=== PATIENT | female | born 1970 | race Hispanic/Latino ===

== ENCOUNTER 2017-10-06 13:44 | Emergency (ER) | payer SELFPAY ==
[~2017-10-06] VITALS: Ht 152.4 cm; Wt 111.6 kg
[~2017-10-06 13:44] MED LIST: ACYCLOVIR200 MG PO; ACYCLOVIR400 MG PO; ASPIR 8181 MG PO; ATORVASTATIN CA20 MG PO; BUPROPION XL150 MG PO; CLINDAMYCIN HC150 MG PO; CYCLOBENZAPRINE5 MG PO; FUROSEMIDE40 MG PO; GABAPENTIN300 MG PO; GLYBURIDE MICRON3 MG PO; HYDROXYZINE HCL25 MG PO; KETOCONAZOLE15 GM TOP; LEVEMIR100 UNIT/1 SC; LEVEMIR100 UNIT/1 SQ; LIPITOR10 MG PO; LISINOPRIL2.5 MG PO; LOPRESSOR25 MG PO; METOPROLOL TART25 MG PO; MUPIROCIN22 GM TOP; NOVOLIN 70100 UNITS/; NOVOLIN R100 UNIT/1 SC; NOVOLIN R100 UNIT/1 SQ; NOVOLOG100 UNIT/1 SC; PREDNISONE20 MG PO; PROVENTIL HFA6.7 GM INH; RANITIDINE HCL150 MG PO; SPIRONOLACTONE25 MG PO; TERBINAFINE HC250 MG PO; ULTRAM 50MG50 MG PO; VASOTEC5 MG PO; VENTOLIN HFA18 GM
[2017-10-06] MEDS ORDERED: TRAMADOL HCL 50 MG TAB PO ONE (14:15)
== END 2017-10-06 15:26 | disposition home or self-care (01) ==
LOC: ER 13:44
DX: B37.3 Candidiasis of vulva and vagina (principal); E11.65 Type 2 diabetes mellitus with hyperglycemia; A60.00 Herpesviral infection of urogenital system, unspecified
CPT/HCPCS: 36415; 82948; 99283

== ENCOUNTER 2017-12-16 16:51 | Inpatient (IN) | payer BC, OTHER ==
[~2017-12-16] VITALS: Ht 152.4 cm; Wt 122.5 kg
--- OUTSIDE RECORDS SUMMARY | 2017-12-16 16:54 | XMS REPORT ---
[facility] Address Unknown Phone Unavailable Care Team Providers Care Rubber Compounder Name Role Phone Unavailable Unavailable Problems This patient has no known problems. Allergies, Adverse Reactions, Alerts This patient has no known allergies or adverse reactions. Medications This patient has no known medications. Encounters Start Date/Time End Date/Time Encounter Type Admission Type Attending [facility] Care Department Encounter ID 2018-02-12 00:00:00 2018-02-12 00:00:00 Outpatient [facility] [id number] 2018-01-18 00:00:00 2018-01-18 00:00:00 Outpatient [facility] [id number] 2018-01-04 00:00:00 2018-01-04 00:00:00 Outpatient [facility] [id number] 2017-12-20 00:00:00 2017-12-20 00:00:00 Outpatient [facility] [id number] 2017-12-20 00:00:00 2017-12-20 00:00:00 Outpatient [facility] [id number] 2017-12-12 00:00:00 2017-12-12 00:00:00 Outpatient [facility] [id number] 2017-12-12 00:00:00 2017-12-12 00:00:00 Outpatient [facility] [id number] 2017-12-07 09:36:56 2017-12-07 09:36:56 Outpatient [facility] [id number] 2017-11-23 11:02:38 2017-11-23 11:02:38 Outpatient [facility] [id number] 2017-11-22 00:00:00 2017-11-22 00:00:00 Outpatient [facility] [id number] 2017-11-10 08:24:23 2017-11-10 08:24:23 Outpatient [facility] [id number] 2017-11-09 10:22:48 2017-11-09 10:22:48 Outpatient [facility] [id number] 2017-11-08 17:07:00 2017-11-08 17:07:00 Emergency [facility] [id number] 2017-11-02 00:00:00 2017-11-02 00:00:00 Outpatient [facility] [id number] 2017-10-05 00:00:00 2017-10-05 00:00:00 Outpatient [facility] [id number] 2017-09-22 00:00:00 2017-09-22 00:00:00 Outpatient [facility] [id number] 2017-09-18 11:24:46 2017-09-18 11:24:46 Outpatient [facility] [id number] 2017-09-05 00:00:00 2017-09-05 00:00:00 Outpatient [facility] [id number] 2017-09-04 11:38:28 2017-09-04 11:38:28 Outpatient [facility] [id number] 2017-09-04 00:00:00 2017-09-04 00:00:00 Outpatient [facility] [id number] 2017-08-31 12:59:42 2017-08-31 12:59:42 Outpatient [facility] [id number] 2017-08-31 10:23:44 2017-08-31 10:23:44 Outpatient [facility] [id number] 2017-08-05 00:00:00 2017-08-05 00:00:00 Outpatient [facility] [id number] 2017-07-12 08:06:16 2017-07-12 08:06:16 Outpatient [facility] [id number] 2017-07-07 08:17:26 2017-07-07 08:17:26 Outpatient [facility] [id number] 2017-07-06 12:18:59 2017-07-06 12:18:59 Outpatient [facility] [id number] 2017-07-06 10:09:19 2017-07-06 10:09:19 Outpatient [facility] [id number] 2017-07-05 13:22:56 2017-07-05 13:22:56 Outpatient [facility] [id number] 2017-06-30 00:00:00 2017-06-30 00:00:00 Outpatient [facility] [id number] 2017-06-29 08:51:16 2017-06-29 08:51:16 Outpatient [facility] [id number] 2017-06-27 21:58:18 2017-06-27 21:58:18 Outpatient [facility] [id number] 2017-06-23 14:26:25 2017-06-23 14:26:25 Outpatient [facility] [id number] 2017-06-23 00:00:00 2017-06-23 00:00:00 Outpatient [facility] [id number] 2017-06-13 00:00:00 2017-06-13 00:00:00 Outpatient [facility] [id number] 2017-05-23 16:55:34 2017-05-23 16:55:34 Outpatient [facility] [id number] 2017-05-23 07:33:53 2017-05-23 07:33:53 Outpatient [facility] [id number] 2017-05-22 12:57:52 2017-05-22 12:57:52 Outpatient [facility] [id number] 2017-05-16 09:17:47 2017-05-16 09:17:47 Outpatient [facility] [id number] 2017-05-10 13:01:44 2017-05-10 13:01:44 Outpatient [facility] [id number] 2017-05-10 08:38:29 2017-05-10 08:38:29 Outpatient [facility] [id number] 2017-05-08 00:00:00 2017-05-08 00:00:00 Outpatient [facility] [id number] 2017-04-24 00:00:00 2017-04-24 00:00:00 Outpatient [facility] [id number] 2017-04-05 00:20:21 2017-04-05 00:20:21 Emergency [facility] [id number] 2017-04-04 22:11:45 2017-04-04 22:11:45 Emergency [facility] [id number] 2017-04-04 09:48:25 2017-04-04 09:48:25 Outpatient [facility] [id number] 2017-03-29 08:12:34 2017-03-29 08:12:34 Outpatient [facility] [id number] 2017-03-22 00:00:00 2017-03-22 00:00:00 Outpatient [facility] [id number] 2017-03-22 00:00:00 2017-03-22 00:00:00 Outpatient [facility] [id number] 2017-03-16 14:17:07 2017-03-16 14:17:07 Outpatient [facility] [id number] 2017-03-16 13:02:05 2017-03-16 13:02:05 Outpatient [facility] [id number] 2017-03-06 00:00:00 2017-03-06 00:00:00 Outpatient [facility] [id number] 2017-03-03 14:45:55 2017-03-03 14:45:55 Outpatient [facility] [id number] 2017-03-01 17:46:34 2017-03-01 17:46:34 Emergency [facility] [id number]
[2017-12-16] MEDS ORDERED: SODIUM CHLORIDE 0.9% 1000ML 1,000 ML IV STA (17:09)
[2017-12-16] MEDS ORDERED: TETRACAINE HCL 0.5% OPTH SOLN 4 ML BTL OP ONE (17:30)
[2017-12-16 17:53] LABS: BILIRUBIN,URINE NEGATIVE (NEGATIVE); CLARITY,URINE CLEAR (CLEAR); COLOR,URINE STRAW (YELLOW); KETONES,URINE NEGATIVE (NEGATIVE); LEUKOCYTE ESTERASE ,URINE NEGATIVE (NEGATIVE); NITRITE,URINE NEGATIVE (NEGATIVE); PROTEIN,URINE DIPSTICK NEGATIVE (NEGATIVE); URINE UROBILINOGEN 0.2 mg/dL (0.2 - 1)
[2017-12-16] MEDS ORDERED: ONDANSETRON HCL INJ 2 MG/ML VIAL IV NR (18:00)
[2017-12-16] MEDS ORDERED: MORPHINE SULFATE 2 MG/ML SYR IV NR (18:00)
[2017-12-16] MEDS ORDERED: CLINDAMYCIN PHOS 900MG/ D5W 50 50 ML IV NR (18:00)
[2017-12-16 18:05] LABS: EPITHELIAL CELLS,URINE MANY /LPF
[2017-12-16 18:06] LABS: BACTERIA,URINE RARE /HPF
[2017-12-16 18:36] LABS: BASOPHILS % 0.3 % (0.0-1.0); EOSINOPHILS # (AUTO) 0.3 (0.0-0.4); EOSINOPHILS % 3.1 % (0.0-6.0); HEMATOCRIT 36.7 % (34.2-44.1); HEMOGLOBIN 11.5 g/dL (12.0-16.0); LYMPHOCYTES % 19.4 % (18.0-39.1); MEAN CORPUSCULAR HEMOGLOBIN 26.7 pg (28-32); MEAN CORPUSCULAR HGB CONC 31.3 g/dL (31-35); MEAN CORPUSCULAR VOLUME 85.3 fL (81-99); MONOCYTES # (AUTO) 0.5 (0.2-0.8); MONOCYTES % 4.9 % (4.4-11.3); NEUTROPHILS # (AUTO) 7.2 (2.1-6.9); NEUTROPHILS % 71.9 % (38.7-80.0); PLATELET COUNT 260 x10e3/uL (140-360); RED CELL DISTRIBUTION WIDTH 14.1 % (11.7-14.4)
[2017-12-16] MEDS ORDERED: MONTELUKAST SOD10 MG PO (18:39)
[2017-12-16 18:52] LABS: ALBUMIN 2.9 g/dL (3.5-5.0); ALBUMIN/GLOBULIN RATIO 0.6 (0.8-2.0); ANION GAP 14.3 mmol/L (8-16); CALCIUM 9.5 mg/dL (8.4-10.2); CREATININE, SERUM 1.06 mg/dL (0.57-1.11); POTASSIUM 4.3 mmol/L (3.5-5.1)
--- NOTE | 2017-12-16 19:23 | Diagnostic Imaging Report ---
EXAM: FOOT RIGHT COMPLETE, AP, lateral and oblique INDICATION: Blister on lower leg COMPARISON: None FINDINGS: BONES: No acute fractures. Small plantar calcaneal spur. JOINTS: No malalignment. SOFT TISSUES: Soft tissue swelling/edema of the foot. IMPRESSION: No fractures or erosions of the right foot. Signed by: Dr. Columba Man M.D. on 12/16/2017 7:19 PM
--- NOTE | 2017-12-16 19:24 | Diagnostic Imaging Report ---
EXAM: LOWER LEG RIGHT, AP and lateral INDICATION: Blister on lower leg COMPARISON: None FINDINGS: BONES: No acute fractures. JOINTS: No malalignment. SOFT TISSUES: Soft tissue swelling/edema of the right leg. IMPRESSION: No right tibia or fibula erosion or fracture. Signed by: Dr. Columba Man M.D. on 12/16/2017 7:20 PM
[2017-12-16] MEDS ORDERED: ONDANSETRON HCL INJ 2 MG/ML VIAL IV PRN (19:30)
[2017-12-16] MEDS ORDERED: SODIUM CHLORIDE FLUSH 10 ML SYR INJ PRN (19:30)
[2017-12-16] MEDS ORDERED: MORPHINE SULFATE 2 MG/ML SYR IV PRN (19:30)
[2017-12-16 20:45] VITALS: BP 192/91
[2017-12-16] MEDS: VANCOMYCIN 1GM/NS 250 ML 250 ML IV SCH (22:43)
[2017-12-16 23:28] VITALS: BP 192/91
[2017-12-17] VITALS (8 sets, daily range): BP systolic 114–192; BP diastolic 54–91
[2017-12-17] MEDS: CLONIDINE HCL 0.1 MG TAB PO PRN (00:31)
[2017-12-17] MEDS ORDERED: TRAMADOL HCL 50 MG TAB PO PRN (01:15)
[2017-12-17 06:53] LABS: BASOPHILS % 0.2 % (0.0-1.0); EOSINOPHILS # (AUTO) 0.3 (0.0-0.4); EOSINOPHILS % 4.1 % (0.0-6.0); HEMATOCRIT 32.8 % (34.2-44.1); LYMPHOCYTES # (AUTO) 1.2 (1.0-3.2); LYMPHOCYTES % 14.3 % (18.0-39.1); MEAN CORPUSCULAR HEMOGLOBIN 26.8 pg (28-32); MEAN CORPUSCULAR HGB CONC 30.5 g/dL (31-35); MEAN CORPUSCULAR VOLUME 87.9 fL (81-99); MONOCYTES # (AUTO) 0.5 (0.2-0.8); MONOCYTES % 6.5 % (4.4-11.3); NEUTROPHILS # (AUTO) 6.2 (2.1-6.9); NEUTROPHILS % 74.5 % (38.7-80.0); PLATELET COUNT 229 x10e3/uL (140-360); RED BLOOD COUNT 3.73 x10e6/uL (3.6-5.1); RED CELL DISTRIBUTION WIDTH 14.1 % (11.7-14.4)
[2017-12-17] MEDS: INSULIN LISPRO 100 UNIT/1 ML 3ML VIAL SQ SCH ×3 (07:50→16:27)
[2017-12-17] MEDS: VANCOMYCIN 1GM/NS 250 ML 250 ML IV SCH ×2 (08:10→20:01)
[2017-12-17] MEDS: ASPIRIN 81 MG CHEW TAB PO SCH (08:59)
[2017-12-17] MEDS: SPIRONOLACTONE 25 MG TAB PO SCH (08:59)
[2017-12-17] MEDS: FUROSEMIDE 40 MG TAB PO SCH ×2 (08:59→16:47)
[2017-12-17] MEDS: KETOCONAZOLE 2% CREAM/15 GM TUBE TOP SCH (09:00)
[2017-12-17] MEDS ORDERED: INSULIN REGULAR, HUMAN 100 UNIT/1 ML 3ML VIAL SQ SCH (09:00)
[2017-12-17] MEDS: LISINOPRIL 2.5 MG TAB PO SCH (09:00)
[2017-12-17] MEDS: BUPROPION HCL 150 MG TABCR PO SCH (09:00)
[2017-12-17] MEDS: GABAPENTIN 300 MG CAP PO SCH ×3 (09:00→22:06)
[2017-12-17] MEDS: MUPIROCIN 2% OINT 22 GM TUBE TOP SCH (09:00)
[2017-12-17] MEDS ORDERED: LEVOFLOXACIN 750MG/D5W 150ML 150 ML IV SCH (09:00)
[2017-12-17] MEDS: METOPROLOL TARTRATE 25 MG TAB PO SCH ×2 (09:00→16:47)
[2017-12-17] MEDS: TERBINAFINE 250 MG TAB PO SCH (09:00)
[2017-12-17] MEDS: CLINDAMYCIN HCL 150 MG CAP PO SCH ×3 (10:45→22:06)
[2017-12-17] MEDS: ACYCLOVIR 200 MG CAP PO SCH (10:45)
[2017-12-17] MEDS ORDERED: SODIUM CHLORIDE 0.9% 250ML 250 ML ONE (10:49)
[2017-12-17] MEDS ORDERED: MONTELUKAST SODIUM 10 MG TAB PO SCH (15:00)
[2017-12-17] MEDS: MONTELUKAST SODIUM 10 MG TAB PO SCH (22:06)
[2017-12-18] VITALS (8 sets, daily range): BP systolic 124–176; BP diastolic 59–82
[2017-12-18] MEDS: CLONIDINE HCL 0.1 MG TAB PO PRN (01:03)
[2017-12-18] MEDS: VANCOMYCIN 1GM/NS 250 ML 250 ML IV SCH ×2 (08:00→20:00)
[2017-12-18] MEDS: INSULIN LISPRO 100 UNIT/1 ML 3ML VIAL SQ SCH ×2 (08:00→12:00)
[2017-12-18] MEDS: METOPROLOL TARTRATE 25 MG TAB PO SCH ×2 (09:00→17:50)
[2017-12-18] MEDS: LISINOPRIL 2.5 MG TAB PO SCH (09:00)
[2017-12-18] MEDS: ACYCLOVIR 200 MG CAP PO SCH (09:43)
[2017-12-18] MEDS: FUROSEMIDE 40 MG TAB PO SCH ×2 (09:43→17:49)
[2017-12-18] MEDS: SPIRONOLACTONE 25 MG TAB PO SCH (09:43)
[2017-12-18] MEDS: ASPIRIN 81 MG CHEW TAB PO SCH (09:43)
[2017-12-18] MEDS: GABAPENTIN 300 MG CAP PO SCH ×3 (09:43→21:46)
[2017-12-18] MEDS: MUPIROCIN 2% OINT 22 GM TUBE TOP SCH (09:43)
[2017-12-18] MEDS: KETOCONAZOLE 2% CREAM/15 GM TUBE TOP SCH (09:43)
[2017-12-18] MEDS: BUPROPION HCL 150 MG TABCR PO SCH (09:43)
[2017-12-18] MEDS: CLINDAMYCIN HCL 150 MG CAP PO SCH ×3 (09:43→21:46)
[2017-12-18] MEDS: TERBINAFINE 250 MG TAB PO SCH (12:23)
[2017-12-18] MEDS ORDERED: DEXTROSE 50% SYRINGE 50 ML IV PRN (15:00)
[2017-12-18] MEDS: INSULIN REGULAR, HUMAN 100 UNIT/1 ML 3ML VIAL SQ SCH ×2 (16:30→21:46)
[2017-12-18] MEDS: NPH, HUMAN INSULIN ISOPHANE 100 UNIT/1 ML 3ML VIAL SQ SCH (17:00)
[2017-12-18] MEDS: MONTELUKAST SODIUM 10 MG TAB PO SCH (21:46)
[2017-12-18] MEDS: INSULIN DETEMIR 100 UNIT/ML PEN SQ SCH (21:47)
[2017-12-19] VITALS (7 sets, daily range): BP systolic 125–157; BP diastolic 59–72
[2017-12-19 07:09] LABS: BASOPHILS % 0.4 % (0.0-1.0); EOSINOPHILS # (AUTO) 0.4 (0.0-0.4); EOSINOPHILS % 4.5 % (0.0-6.0); HEMATOCRIT 37.1 % (34.2-44.1); HEMOGLOBIN 11.6 g/dL (12.0-16.0); LYMPHOCYTES # (AUTO) 1.8 (1.0-3.2); LYMPHOCYTES % 19.3 % (18.0-39.1); MEAN CORPUSCULAR HGB CONC 31.3 g/dL (31-35); MEAN CORPUSCULAR VOLUME 86.5 fL (81-99); MONOCYTES # (AUTO) 0.6 (0.2-0.8); MONOCYTES % 6.9 % (4.4-11.3); NEUTROPHILS # (AUTO) 6.3 (2.1-6.9); NEUTROPHILS % 68.6 % (38.7-80.0); PLATELET COUNT 269 x10e3/uL (140-360); RED BLOOD COUNT 4.29 x10e6/uL (3.6-5.1); RED CELL DISTRIBUTION WIDTH 14.3 % (11.7-14.4)
[2017-12-19] MEDS: INSULIN REGULAR, HUMAN 100 UNIT/1 ML 3ML VIAL SQ SCH ×4 (07:30→21:04)
[2017-12-19] MEDS: VANCOMYCIN 1GM/NS 250 ML 250 ML IV SCH ×2 (08:57→21:04)
[2017-12-19] MEDS: KETOCONAZOLE 2% CREAM/15 GM TUBE TOP SCH (09:00)
[2017-12-19] MEDS: LISINOPRIL 2.5 MG TAB PO SCH (09:00)
[2017-12-19] MEDS: NPH, HUMAN INSULIN ISOPHANE 100 UNIT/1 ML 3ML VIAL SQ SCH ×2 (09:00→17:00)
[2017-12-19] MEDS: METOPROLOL TARTRATE 25 MG TAB PO SCH ×2 (09:00→17:05)
[2017-12-19] MEDS: ASPIRIN 81 MG CHEW TAB PO SCH (09:29)
[2017-12-19] MEDS: GABAPENTIN 300 MG CAP PO SCH ×3 (09:29→21:04)
[2017-12-19] MEDS: SPIRONOLACTONE 25 MG TAB PO SCH (09:29)
[2017-12-19] MEDS: CLINDAMYCIN HCL 150 MG CAP PO SCH ×3 (09:29→21:04)
[2017-12-19] MEDS: FUROSEMIDE 40 MG TAB PO SCH ×2 (09:29→17:05)
[2017-12-19] MEDS: MUPIROCIN 2% OINT 22 GM TUBE TOP SCH (09:30)
[2017-12-19] MEDS: BUPROPION HCL 150 MG TABCR PO SCH (09:30)
[2017-12-19] MEDS: ACYCLOVIR 200 MG CAP PO SCH (09:30)
[2017-12-19] MEDS: TERBINAFINE 250 MG TAB PO SCH (12:44)
[2017-12-19] MEDS: INSULIN DETEMIR 100 UNIT/ML PEN SQ SCH (21:04)
[2017-12-19] MEDS: MONTELUKAST SODIUM 10 MG TAB PO SCH (21:04)
[2017-12-20 00:12] VITALS: BP 120/58
[2017-12-20 00:25] VITALS: BP 120/58
[2017-12-20 05:12] VITALS: BP 114/53
[2017-12-20 07:00] LABS: BASOPHILS % 0.3 % (0.0-1.0); EOSINOPHILS # (AUTO) 0.4 (0.0-0.4); EOSINOPHILS % 4.4 % (0.0-6.0); HEMATOCRIT 38.6 % (34.2-44.1); HEMOGLOBIN 11.9 g/dL (12.0-16.0); LYMPHOCYTES # (AUTO) 2.1 (1.0-3.2); LYMPHOCYTES % 21.3 % (18.0-39.1); MEAN CORPUSCULAR HEMOGLOBIN 26.6 pg (28-32); MEAN CORPUSCULAR HGB CONC 30.8 g/dL (31-35); MEAN CORPUSCULAR VOLUME 86.2 fL (81-99); MONOCYTES # (AUTO) 0.8 (0.2-0.8); MONOCYTES % 7.6 % (4.4-11.3); NEUTROPHILS # (AUTO) 6.5 (2.1-6.9); NEUTROPHILS % 65.9 % (38.7-80.0); PLATELET COUNT 274 x10e3/uL (140-360); RED BLOOD COUNT 4.48 x10e6/uL (3.6-5.1); RED CELL DISTRIBUTION WIDTH 14.3 % (11.7-14.4)
[2017-12-20 07:21] LABS: ALBUMIN 2.9 g/dL (3.5-5.0); ALBUMIN/GLOBULIN RATIO 0.6 (0.8-2.0); ANION GAP 14.5 mmol/L (8-16); CALCIUM 9.3 mg/dL (8.4-10.2); CREATININE, SERUM 1.25 mg/dL (0.57-1.11); POTASSIUM 4.5 mmol/L (3.5-5.1)
[2017-12-20] MEDS: INSULIN REGULAR, HUMAN 100 UNIT/1 ML 3ML VIAL SQ SCH ×2 (07:40→11:35)
[2017-12-20] MEDS: VANCOMYCIN 1GM/NS 250 ML 250 ML IV SCH (08:00)
[2017-12-20 08:07] VITALS: BP 100/56
[2017-12-20] MEDS: FUROSEMIDE 40 MG TAB PO SCH (08:10)
[2017-12-20] MEDS: ASPIRIN 81 MG CHEW TAB PO SCH (08:10)
[2017-12-20] MEDS: TERBINAFINE 250 MG TAB PO SCH (08:10)
[2017-12-20] MEDS: ACYCLOVIR 200 MG CAP PO SCH (08:10)
[2017-12-20] MEDS: GABAPENTIN 300 MG CAP PO SCH ×2 (08:10→16:10)
[2017-12-20] MEDS: CLINDAMYCIN HCL 150 MG CAP PO SCH ×2 (08:10→16:10)
[2017-12-20] MEDS: BUPROPION HCL 150 MG TABCR PO SCH (08:10)
[2017-12-20] MEDS: SPIRONOLACTONE 25 MG TAB PO SCH (08:10)
[2017-12-20] MEDS: NPH, HUMAN INSULIN ISOPHANE 100 UNIT/1 ML 3ML VIAL SQ SCH (08:10)
[2017-12-20] MEDS: METOPROLOL TARTRATE 25 MG TAB PO SCH (09:00)
[2017-12-20] MEDS: MUPIROCIN 2% OINT 22 GM TUBE TOP SCH (09:00)
[2017-12-20] MEDS: LISINOPRIL 2.5 MG TAB PO SCH (09:00)
[2017-12-20] MEDS: KETOCONAZOLE 2% CREAM/15 GM TUBE TOP SCH (09:00)
[2017-12-20 11:41] VITALS: BP 153/69
[2017-12-20 16:23] VITALS: BP 153/68
== END 2017-12-20 17:12 | disposition home or self-care (01) | DRG 603 ==
LOC: ER 16:51 → ERHOLD 19:42 → MED/SURG3 20:16
PROVIDERS: ADMIT Family Medicine; ATTEND Family Medicine
DX: L03.115 Cellulitis of right lower limb (principal); E11.40 Type 2 diabetes mellitus with diabetic neuropathy, unspecified; Z68.43 Body mass index [BMI] 50.0-59.9, adult; I10 Essential (primary) hypertension; E78.5 Hyperlipidemia, unspecified; I87.8 Other specified disorders of veins; E66.9 Obesity, unspecified; Z79.82 Long term (current) use of aspirin; Z79.4 Long term (current) use of insulin; Z88.0 Allergy status to penicillin; Z88.2 Allergy status to sulfonamides; Z88.8 Allergy status to other drugs, medicaments and biological substances; Z88.5 Allergy status to narcotic agent
CPT/HCPCS: 36415; 80053; 80202; 81001; 82948; 83605; 85025; 87040; 87071; 87205; 96360; 96361; 96365; 96367; 96372; 96374; 99284; J2270; J2405; J3370; J7030; J7050

== ENCOUNTER 2018-06-19 19:10 | Inpatient (IN) | payer SELFPAY ==
[~2018-06-19] VITALS: Ht 167.6 cm; Wt 115.7 kg
[~2018-06-19 19:10] MED LIST changes: +MONTELUKAST SOD10 MG PO
[2018-06-19] MEDS ORDERED: HYDROCODONE/APAP 5MG-325MG TAB PO NR (20:15)
[2018-06-19 20:40] LABS: BASOPHILS % 0.5 % (0.0-1.0); EOSINOPHILS # (AUTO) 0.2 (0.0-0.4); EOSINOPHILS % 3.4 % (0.0-6.0); HEMATOCRIT 37.5 % (34.2-44.1); HEMOGLOBIN 12.3 g/dL (12.0-16.0); LYMPHOCYTES # (AUTO) 1.8 (1.0-3.2); LYMPHOCYTES % 29.4 % (18.0-39.1); MEAN CORPUSCULAR HEMOGLOBIN 28.4 pg (28-32); MEAN CORPUSCULAR HGB CONC 32.8 g/dL (31-35); MEAN CORPUSCULAR VOLUME 86.6 fL (81-99); MONOCYTES # (AUTO) 0.3 (0.2-0.8); MONOCYTES % 5.4 % (4.4-11.3); NEUTROPHILS # (AUTO) 3.8 (2.1-6.9); NEUTROPHILS % 61.1 % (38.7-80.0); PLATELET COUNT 267 x10e3/uL (140-360); RED BLOOD COUNT 4.33 x10e6/uL (3.6-5.1); RED CELL DISTRIBUTION WIDTH 13.2 % (11.7-14.4)
--- NOTE | 2018-06-19 21:52 | Diagnostic Imaging Report ---
LOWER LEG LEFT Comparison: None Clinical history: \S\Puncture wound LLE, rule out FB \[id number] \S\2100 \S\Y Findings: Mild lower extremity soft tissue swelling. No acute fracture or dislocation. No bony erosion. Benign smooth periosteal thickening of the fibula, which can be seen with chronic venous stasis. Impression: No radiographic evidence of osteomyelitis. No radiopaque foreign body. Signed by: Dr Cara Agustin MD on 06/19/2018 9:47 PM
[2018-06-19 21:53] LABS: ALANINE AMINOTRANSFERASE 17 IU/L (0-55); ALBUMIN 3.2 g/dL (3.5-5.0); ALBUMIN/GLOBULIN RATIO 0.7 (0.8-2.0); ALKALINE PHOSPHATASE 88 IU/L (40-150); AMYLASE 27 U/L (25-125); ANION GAP 14.1 mmol/L (8-16); BLOOD UREA NITROGEN 11 mg/dL (7-26); BUN/CREATININE RATIO 9 (6-25); CALCIUM 9.4 mg/dL (8.4-10.2); CARBON DIOXIDE 31 mmol/L (22-29); CHLORIDE 95 mmol/L (98-107); CREATININE, SERUM 1.28 mg/dL (0.57-1.11); EST GLOMERULAR FILTRATION RATE 44 ML/MIN (60-); LIPASE 26 U/L (8-78); POTASSIUM 4.1 mmol/L (3.5-5.1); SODIUM 136 mmol/L (136-145)
[2018-06-19 21:54] LABS: GLUCOSE 492 mg/dL (74-118)
[2018-06-19] MEDS ORDERED: MORPHINE SULFATE 2 MG/ML SYR IV PRN (22:00)
[2018-06-19] MEDS ORDERED: SODIUM CHLORIDE 0.9% 1000ML 1,000 ML IV SCH (22:00)
[2018-06-19] MEDS ORDERED: INSULIN REGULAR, HUMAN 100 UNIT/1 ML 3ML VIAL IV ONE (22:00)
[2018-06-19] MEDS ORDERED: ONDANSETRON HCL INJ 2 MG/ML VIAL IV PRN (22:00)
[2018-06-19] MEDS ORDERED: DEXTROSE 50% SYRINGE 50 ML IV PRN (22:00)
[2018-06-19 22:24] LABS: BILIRUBIN,URINE NEGATIVE (NEGATIVE); CLARITY,URINE SL CLOUDY (CLEAR); COLOR,URINE YELLOW (YELLOW); KETONES,URINE NEGATIVE (NEGATIVE); LEUKOCYTE ESTERASE ,URINE NEGATIVE (NEGATIVE); NITRITE,URINE NEGATIVE (NEGATIVE); PROTEIN,URINE DIPSTICK TRACE (NEGATIVE); URINE UROBILINOGEN 0.2 mg/dL (0.2 - 1)
[2018-06-19] MEDS: LEVOFLOXACIN 500MG/D5W 100ML 100 ML IV SCH (22:45)
[2018-06-19] MEDS: SODIUM CHLORIDE 0.9% 1000ML 1,000 ML IV SCH (22:45)
[2018-06-19 22:53] LABS: BACTERIA,URINE FEW /HPF; EPITHELIAL CELLS,URINE FEW /LPF; RBC,URINE 0-5 /HPF (0-5); WBC,URINE (MAN) 0-5 /HPF (0-5)
[2018-06-19 23:49] VITALS: BP 173/89
[2018-06-20] VITALS (8 sets, daily range): BP systolic 114–173; BP diastolic 55–89
[2018-06-20] MEDS: VANCOMYCIN 1GM/NS 250 ML 250 ML IV SCH ×3 (01:11→22:30)
[2018-06-20 05:34] LABS: BASOPHILS % 0.4 % (0.0-1.0); EOSINOPHILS # (AUTO) 0.2 (0.0-0.4); HEMATOCRIT 35.6 % (34.2-44.1); HEMOGLOBIN 11.4 g/dL (12.0-16.0); LYMPHOCYTES # (AUTO) 1.3 (1.0-3.2); LYMPHOCYTES % 23.2 % (18.0-39.1); MEAN CORPUSCULAR HEMOGLOBIN 28.3 pg (28-32); MEAN CORPUSCULAR VOLUME 88.3 fL (81-99); MONOCYTES # (AUTO) 0.4 (0.2-0.8); MONOCYTES % 7.4 % (4.4-11.3); NEUTROPHILS # (AUTO) 3.6 (2.1-6.9); NEUTROPHILS % 64.8 % (38.7-80.0); PLATELET COUNT 213 x10e3/uL (140-360); RED BLOOD COUNT 4.03 x10e6/uL (3.6-5.1); RED CELL DISTRIBUTION WIDTH 12.9 % (11.7-14.4)
[2018-06-20 05:56] LABS: ALANINE AMINOTRANSFERASE 14 IU/L (0-55); ALBUMIN 2.8 g/dL (3.5-5.0); ALBUMIN/GLOBULIN RATIO 0.7 (0.8-2.0); ALKALINE PHOSPHATASE 75 IU/L (40-150); ANION GAP 11.8 mmol/L (8-16); BLOOD UREA NITROGEN 10 mg/dL (7-26); BUN/CREATININE RATIO 11 (6-25); CALCIUM 8.6 mg/dL (8.4-10.2); CARBON DIOXIDE 26 mmol/L (22-29); CHLORIDE 100 mmol/L (98-107); CREATININE, SERUM 0.94 mg/dL (0.57-1.11); EST GLOMERULAR FILTRATION RATE > 60 ML/MIN (60-); GLUCOSE 317 mg/dL (74-118); POTASSIUM 3.8 mmol/L (3.5-5.1); SODIUM 134 mmol/L (136-145)
[2018-06-20] MEDS ORDERED: TRAMADOL HCL 50 MG TAB PO PRN (07:15)
[2018-06-20] MEDS: INSULIN LISPRO 100 UNIT/1 ML 3ML VIAL SQ SCH ×3 (07:52→16:30)
[2018-06-20] MEDS: INSULIN REGULAR, HUMAN 100 UNIT/1 ML 3ML VIAL SQ SCH ×4 (07:52→20:19)
[2018-06-20] MEDS: LISINOPRIL 2.5 MG TAB PO SCH (08:31)
[2018-06-20] MEDS: FUROSEMIDE 40 MG TAB PO SCH ×2 (08:31→16:50)
[2018-06-20] MEDS: INSULIN DETEMIR 100 UNIT/ML PEN SQ SCH ×2 (08:31→20:31)
[2018-06-20] MEDS: ACYCLOVIR 200 MG CAP PO SCH (08:31)
[2018-06-20] MEDS: BUPROPION HCL 150 MG TABCR PO SCH (08:31)
[2018-06-20] MEDS: ASPIRIN 81 MG CHEW TAB PO SCH (08:31)
[2018-06-20] MEDS: METOPROLOL TARTRATE 25 MG TAB PO SCH ×2 (08:31→16:50)
[2018-06-20] MEDS: SPIRONOLACTONE 25 MG TAB PO SCH (08:31)
[2018-06-20] MEDS: GABAPENTIN 300 MG CAP PO SCH ×3 (08:31→20:19)
[2018-06-20] MEDS: TERBINAFINE 250 MG TAB PO SCH (08:31)
[2018-06-20] MEDS: SODIUM CHLORIDE 0.9% 1000ML 1,000 ML IV SCH ×3 (08:35→21:02)
[2018-06-20] MEDS ORDERED: INSULIN DETEMIR 90 UNIT SC SCH (09:00)
[2018-06-20] MEDS ORDERED: ACETAMINOPHEN 325 MG TAB PO PRN (11:30)
[2018-06-20] MEDS ORDERED: MORPHINE SULFATE INJ 4 MG/ML INJ IV PRN (13:30)
[2018-06-20] MEDS: LEVOFLOXACIN 500MG/D5W 100ML 100 ML IV SCH (21:01)
--- NOTE | 2018-06-20 21:09 | History and Physical ---
CHIEF COMPLAINT: [id number] female comes with redness and erythema to the lower extremity. HISTORY OF PRESENTING ILLNESS: This is Ms. Nicol Jessica with a history of uncontrolled diabetes mellitus, who was in usual state of health until she bumped her lower extremity into a corner of a box and she developed puncture wound, and the puncture wound started getting infected. The patient started with erythema and tenderness in that area and came on and was admitted for cellulitis of the lower extremities. PAST MEDICAL HISTORY: History of diabetes mellitus, history of hypertension, history of venous stasis, history of obesity, history of neuropathy, history of hyperlipidemia, history of COPD, history of sleep apnea. SURGICAL HISTORY: Includes cholecystectomy, hemorrhoidectomy, and tubal ligation. MEDICATIONS: Include acyclovir 200 mg, albuterol and Atrovent treatments, bupropion 150 mg for depression, clindamycin 150 mg 3 times a day, gabapentin 600 mg 3 times a day, insulin Levemir 9 units twice a day, ketoconazole 50 mg cream, lisinopril 2.5 mg daily, metoprolol 25 mg twice a day, montelukast 10 mg, Aldactone 10 mg, and terbinafine mg. SOCIAL HISTORY: No ETOH, no IV drug abuse. FAMILY HISTORY: Positive for diabetes mellitus and also for cardiac. PHYSICAL EXAMINATION: GENERAL: Patient is alert and oriented x3. VITAL SIGNS: Blood pressure is 185/85, heart rate is 78, satting at 96%. HEENT: Normocephalic, atraumatic. Pupils react to light and accommodation. CVS: S1 and S2 normal. Regular rate and rhythm. ABDOMEN: Nondistended. Slight tenderness in the left upper quadrant. EXTREMITIES: Left lower quadrant with tenderness and positive for erythematous lesion with some sloughing also present. IMAGING STUDIES: Lower extremity x-rays showed mild lower extremity soft tissue swelling. No bony erosions. Benign smooth periosteal thickening in the fibula which can be seen as chronic venous stasis and no radiographic evidence of osteomyelitis. LABORATORY VALUES: White count was 5.5, hemoglobin was 11.4, hematocrit was normal. Glucose was 492. Sodium was 136, potassium was 4.1, creatinine of 1.28. ASSESSMENT: 1. Cellulitis of the left lower extremity. 2. Status post puncture wound. 3. Uncontrolled diabetes mellitus. 4. Acute kidney injury. PLAN: To continue with the Zosyn and the vancomycin. Vancomycin trough will be checked. The patient has to keep her leg elevated and will continue to monitor the patient. Further recommendations on clinical course. Also, I will continue her home medications for diabetes mellitus. Job#: [id number]
[2018-06-21] VITALS (7 sets, daily range): BP systolic 119–170; BP diastolic 58–94
[2018-06-21] MEDS: SODIUM CHLORIDE 0.9% 1000ML 1,000 ML IV SCH ×2 (05:59→20:51)
[2018-06-21] MEDS: INSULIN REGULAR, HUMAN 100 UNIT/1 ML 3ML VIAL SQ SCH ×4 (07:42→20:47)
[2018-06-21] MEDS: INSULIN LISPRO 100 UNIT/1 ML 3ML VIAL SQ SCH ×3 (07:42→16:30)
[2018-06-21] MEDS: ASPIRIN 81 MG CHEW TAB PO SCH (08:08)
[2018-06-21] MEDS: GABAPENTIN 300 MG CAP PO SCH ×3 (08:08→20:47)
[2018-06-21] MEDS: FUROSEMIDE 40 MG TAB PO SCH ×2 (08:08→16:55)
[2018-06-21] MEDS: METOPROLOL TARTRATE 25 MG TAB PO SCH ×2 (08:08→16:55)
[2018-06-21] MEDS: TERBINAFINE 250 MG TAB PO SCH (08:08)
[2018-06-21] MEDS: SPIRONOLACTONE 25 MG TAB PO SCH (08:09)
[2018-06-21] MEDS: LISINOPRIL 2.5 MG TAB PO SCH (08:48)
[2018-06-21] MEDS: ACYCLOVIR 200 MG CAP PO SCH (08:48)
[2018-06-21] MEDS: BUPROPION HCL 150 MG TABCR PO SCH (08:48)
[2018-06-21] MEDS: INSULIN DETEMIR 100 UNIT/ML PEN SQ SCH ×2 (08:49→20:46)
[2018-06-21] MEDS: VANCOMYCIN 1GM/NS 250 ML 250 ML IV SCH ×2 (10:05→22:00)
[2018-06-21] MEDS: LEVOFLOXACIN 500MG/D5W 100ML 100 ML IV SCH (22:00)
[2018-06-22 00:14] VITALS: BP 141/71
[2018-06-22 05:11] VITALS: BP 128/64
[2018-06-22] MEDS: INSULIN REGULAR, HUMAN 100 UNIT/1 ML 3ML VIAL SQ SCH ×3 (07:30→16:30)
[2018-06-22] MEDS: INSULIN LISPRO 100 UNIT/1 ML 3ML VIAL SQ SCH ×3 (07:30→16:30)
[2018-06-22 07:50] VITALS: BP 164/68
[2018-06-22] MEDS: ASPIRIN 81 MG CHEW TAB PO SCH (08:17)
[2018-06-22] MEDS: LISINOPRIL 2.5 MG TAB PO SCH (08:17)
[2018-06-22] MEDS: TERBINAFINE 250 MG TAB PO SCH (08:17)
[2018-06-22] MEDS: METOPROLOL TARTRATE 25 MG TAB PO SCH ×2 (08:17→16:45)
[2018-06-22] MEDS: SPIRONOLACTONE 25 MG TAB PO SCH (08:17)
[2018-06-22] MEDS: FUROSEMIDE 40 MG TAB PO SCH ×2 (08:17→16:45)
[2018-06-22] MEDS: GABAPENTIN 300 MG CAP PO SCH ×2 (08:17→14:19)
[2018-06-22] MEDS: BUPROPION HCL 150 MG TABCR PO SCH (08:18)
[2018-06-22] MEDS: ACYCLOVIR 200 MG CAP PO SCH (08:18)
[2018-06-22] MEDS: VANCOMYCIN 1GM/NS 250 ML 250 ML IV SCH (10:00)
[2018-06-22] MEDS: INSULIN DETEMIR 100 UNIT/ML PEN SQ SCH (10:00)
[2018-06-22] MEDS ORDERED: CLINDAMYCIN HC150 MG PO (10:19)
[2018-06-22 10:20] VITALS: BP 164/68
== END 2018-06-22 18:03 | disposition home or self-care (01) | DRG 603 ==
LOC: ER 19:10 → ERHOLD 22:05 → MED/SURG3 22:22
PROVIDERS: ADMIT Family Medicine; ATTEND Family Medicine
DX: L03.116 Cellulitis of left lower limb (principal); Z68.41 Body mass index [BMI] 40.0-44.9, adult; E11.65 Type 2 diabetes mellitus with hyperglycemia; I10 Essential (primary) hypertension; E78.5 Hyperlipidemia, unspecified; E66.01 Morbid (severe) obesity due to excess calories; I87.8 Other specified disorders of veins; J44.9 Chronic obstructive pulmonary disease, unspecified; E11.42 Type 2 diabetes mellitus with diabetic polyneuropathy; Z88.5 Allergy status to narcotic agent; Z88.0 Allergy status to penicillin; Z88.2 Allergy status to sulfonamides; Z88.8 Allergy status to other drugs, medicaments and biological substances; R19.7 Diarrhea, unspecified
CPT/HCPCS: 36415; 80053; 81001; 82150; 82948; 83605; 83690; 83735; 84702; 85025; 87040; 87071; 87086; 87205; 96361; 99284; J1956; J3370; J7030

== ENCOUNTER 2018-11-26 18:40 | Emergency (ER) | payer SELFPAY ==
[~2018-11-26] VITALS: Ht 167.6 cm; Wt 115.7 kg
--- OUTSIDE RECORDS SUMMARY | 2018-11-26 18:43 | XMS REPORT | Continuity of Care Document ---
Author Author [facility] Address Unknown Phone Unavailable Problems Problem Status Onset Date Classification Date Reported Comments Source R06.02 Active 04/16/2018 [facility] Medications Medication Details Route Status Patient Instructions Ordering Provider Order Date Source Allergies, Adverse Reactions, Alerts Substance Category Reaction Severity Reaction type Status Date Reported Comments Source penicillins Assertion Drug allergy Active [facility] codeine Assertion Drug allergy Active [facility] Benadryl Assertion Drug allergy Active [facility] NyQuil Cough Assertion Drug allergy Active [facility] Immunizations Immunization Date Given Site Status Last Updated Comments Source Results Order Name Results Value Reference Range Date Interpretation Comments Source Chest 2 views DX Chest 2 views DX Patient Name: CARLOS ARZOLA : 1970; Age: 47 years y/o Female MR: [id number] * CHEST, 2 views HISTORY: - R06.02 Shortness of breath COMPARISON: 11/06/2007. TECHNIQUE: Frontal and lateral radiographs of the chest were obtained. FINDINGS: The lungs are clear. There are no pleural effusions. The heart and pulmonary vasculature are within normal limits. The regional skeleton is unremarkable. On the lateral view, surgical clips are noted in the upper abdomen, possible prior cholecystectomy. IMPRESSION: 1. No active disease. 2. On the lateral view, surgical clips are noted in the upper abdomen, possible prior cholecystectomy. SL: MICHAEL 04/16/2018 - - Read by: Amilcar Márquez MD Dictated Date/time: 04/16/18 10:53 Electronically Signed by: Amilcar Márquez MD 04/16/18 10:59 FINAL REPORT [facility] Vital Signs Vital Sign Value Date Comments Source Encounters Location Location Details Encounter Type Encounter Number Reason For Visit Attending Provider ADM Date DC Date Status Source [facility] [id number] Jake Manciapta 04/16/2018 04/17/2018 [facility] Procedures Procedure Code Date Perfomer Comments Source
[2018-11-26] MEDS ORDERED: ONDANSETRON HCL INJ 2MG/ML 2ML 2 MG/ML VIAL IV ONE (20:01)
[2018-11-26 20:53] LABS: BILIRUBIN,URINE NEGATIVE (NEGATIVE); CLARITY,URINE SL CLOUDY (CLEAR); COLOR,URINE STRAW (YELLOW); KETONES,URINE NEGATIVE (NEGATIVE); LEUKOCYTE ESTERASE ,URINE NEGATIVE (NEGATIVE); NITRITE,URINE NEGATIVE (NEGATIVE); PROTEIN,URINE DIPSTICK 2+ (NEGATIVE); URINE UROBILINOGEN 8 mg/dL (0.2 - 1)
[2018-11-26 21:01] LABS: AMORPHOUS SEDIMENT,URINE FEW (FEW); BACTERIA,URINE MODERATE /HPF; EPITHELIAL CELLS,URINE MANY /LPF; RBC,URINE 0-5 /HPF (0-5)
[2018-11-26 22:29] LABS: BASOPHILS % 0.2 % (0.0-1.0); EOSINOPHILS # (AUTO) 0.3 (0.0-0.4); EOSINOPHILS % 2.7 % (0.0-6.0); HEMOGLOBIN 10.8 g/dL (12.0-16.0); LYMPHOCYTES # (AUTO) 2.2 (1.0-3.2); MEAN CORPUSCULAR HEMOGLOBIN 27.2 pg (28-32); MEAN CORPUSCULAR HGB CONC 30.9 g/dL (31-35); MEAN CORPUSCULAR VOLUME 88.2 fL (81-99); MONOCYTES # (AUTO) 0.4 (0.2-0.8); MONOCYTES % 4.6 % (4.4-11.3); NEUTROPHILS # (AUTO) 6.6 (2.1-6.9); NEUTROPHILS % 68.8 % (38.7-80.0); PLATELET COUNT 219 x10e3/uL (140-360); RED BLOOD COUNT 3.97 x10e6/uL (3.6-5.1); RED CELL DISTRIBUTION WIDTH 13.9 % (11.7-14.4)
[2018-11-26 22:48] LABS: ALBUMIN 2.8 g/dL (3.5-5.0); ALBUMIN/GLOBULIN RATIO 0.6 (0.8-2.0); ANION GAP 14.9 mmol/L (8-16); CALCIUM 9.2 mg/dL (8.4-10.2); CREATININE, SERUM 1.16 mg/dL (0.57-1.11); POTASSIUM 3.9 mmol/L (3.5-5.1)
[2018-11-26] MEDS ORDERED: DIATRIZOATE MEGL/DIATRIZOA SOD 30 ML BTL PO ONE (23:20)
--- NOTE | 2018-11-27 01:05 | Diagnostic Imaging Report ---
EXAM: CT Abdomen and Pelvis WITHOUT contrast INDICATION: Left upper quadrant pain. Rule out pancreatitis. ^TORB DR RESTREPO 11/26/18 @ 4782 COMPARISON: None. TECHNIQUE: Abdomen and pelvis were scanned utilizing a multidetector helical scanner from the lung base to the pubic symphysis without administration of IV contrast. Absence of intravenous contrast decreases sensitivity for detection of focal lesions and vascular pathology. Coronal and sagittal reformations were obtained. Routine protocol was performed. IV CONTRAST: None ORAL CONTRAST: Gastrografin COMPLICATIONS: None RADIATION DOSE: Total DLP: 1189.7 mGy*cm Estimated effective dose: (DLP x 0.015 x size factor) mSv CTDIvol has been reviewed. It is below the limits set by the Radiation Protocol Committee (RPC). FINDINGS: LINES and TUBES: None. LOWER THORAX: Small right pleural effusion. HEPATOBILIARY: No focal hepatic lesions. No biliary ductal dilation. GALLBLADDER: Cholecystectomy. SPLEEN: No splenomegaly. PANCREAS: No focal masses or ductal dilatation. ADRENALS: No adrenal nodules KIDNEYS/URETERS: No hydronephrosis. No cystic or solid mass lesions. No stones. GI TRACT: No abnormal distention, wall thickening, or evidence of bowel obstruction. There are diverticula within the colon without evidence of diverticulitis. Appendix is normal. PELVIC ORGANS/BLADDER: Unremarkable. LYMPH NODES: No lymphadenopathy. VESSELS: Unremarkable. PERITONEUM / RETROPERITONEUM: No free air or fluid. BONES: No acute or suspicious osseous lesions. Hemangioma in the T11 vertebral body. Moderate disc space narrowing L5-S1. SOFT TISSUES: Skin thickening and subcutaneous stranding along the anterior inferior pannus. IMPRESSION: No CT evidence of pancreatitis, although CT may be negative in mild pancreatitis. Recommend correlation with lipase. No acute intra-abdominal abnormalities. Small right pleural effusion. Signed by: DR. Srikanth Staples MD on 11/27/2018 1:02 AM
[2018-11-27 01:31] VITALS: BP 167/101
== END 2018-11-27 02:00 | disposition home or self-care (01) ==
LOC: ER 18:40
DX: R10.12 Left upper quadrant pain (principal); R10.32 Left lower quadrant pain; R11.0 Nausea; K57.32 Diverticulitis of large intestine without perforation or abscess without bleeding; I10 Essential (primary) hypertension; E11.9 Type 2 diabetes mellitus without complications; J44.9 Chronic obstructive pulmonary disease, unspecified; E78.5 Hyperlipidemia, unspecified; A60.00 Herpesviral infection of urogenital system, unspecified
CPT/HCPCS: 36415; 74176; 80053; 81001; 82150; 83690; 85025; 99284

== ENCOUNTER 2019-01-05 20:58 | Emergency (ER) | payer SELFPAY ==
[~2019-01-05] VITALS: Ht 167.6 cm; Wt 115.7 kg
--- NOTE | 2019-01-05 22:23 | NUR ---
pt states she thinks her sugar is low, fsbs 30. fully awake alert skin w/d resp nonlab, pt able to eat and drink without difficulty. apple juice, sandwich and pudding given to patient. Boubacar Beck, OYSTER SHIPPER aware.
--- NOTE | 2019-01-05 22:24 | Diagnostic Imaging Report ---
Exam: Right Ankle Series. History: Status post fall and ankle pain Comparison: None. DISCUSSION: 3 views of the right ankle. There is normal bone mineralization. No evidence of acute, displaced fracture or dislocation. Ankle mortise is preserved.No osteochondral lesion. No abnormal soft tissue calcification or mass. Vascular calcifications. Small inferior calcaneal enthesophyte. Moderate soft tissue swelling surrounding the ankle. IMPRESSION: 1. Moderate soft tissue swelling surrounding the ankle, without underlying acute bony abnormality. The staff physician below has personally reviewed this exam on the date of dictation. Signed by: Dr. Frank Lee M.D. on 01/05/2019 10:21 PM
--- NOTE | 2019-01-05 22:25 | Diagnostic Imaging Report ---
Exam: Right Knee Series. History: Multiple small Comparison: None. Findings: 3 views of the right knee. There is normal bone mineralization. Negative for acute, displaced fracture or dislocation. Mild degenerative changes with small patellar osteophytes and mild joint space narrowing in the medial femorotibial compartment. No abnormal soft tissue calcification or mass. No effusions or soft tissue swelling. Impression: 1. No acute abnormalities. Signed by: Dr. Frank Lee M.D. on 01/05/2019 10:22 PM
== END 2019-01-05 22:57 | disposition home or self-care (01) ==
LOC: ER 20:58
DX: S83.421A Sprain of lateral collateral ligament of right knee, initial encounter (principal); S93.421A Sprain of deltoid ligament of right ankle, initial encounter; W01.0XXA Fall on same level from slipping, tripping and stumbling without subsequent striking against object, initial encounter; Y93.01 Activity, walking, marching and hiking; Y92.481 Parking lot as the place of occurrence of the external cause
CPT/HCPCS: 99283

== ENCOUNTER 2019-04-25 19:24 | Emergency (ER) | payer SELFPAY ==
[~2019-04-25] VITALS: Ht 167.6 cm; Wt 115.7 kg
--- OUTSIDE RECORDS SUMMARY | 2019-04-25 19:29 | XMS REPORT | Continuity of Care Document ---
Author Author [facility] Organization [facility] Address Unknown Phone Unavailable Care Team Providers Care Electron Beam Machine Welder Setter Name Role Phone [facility] Unavailable Unavailable Problems Problem Status Onset Date Classification Date Reported Comments Source R06.02 Active 04/16/2018 [facility] Medications No Data Provided for This Section Allergies, Adverse Reactions, Alerts Substance Category Reaction Severity Reaction type Status Date Reported Comments Source penicillins Assertion Drug allergy Active [facility] codeine Assertion Drug allergy Active [facility] Benadryl Assertion Drug allergy Active [facility] NyQuil Cough Assertion Drug allergy Active [facility] Immunizations No Data Provided for This Section Results No Data Provided for This Section Pathology Reports No Data Provided for This Section Diagnostic Reports Report Value Date Source Chest 2 views DX Patient Name: CARLOS ARZOLA : 1970; Age: 47 years y/o Female MR: [id number] * CHEST, 2 views HISTORY: - R06.02 [...] abdomen, possible prior cholecystectomy. SL: MICHAEL 04/16/2018 [facility] Consultation Notes No Data Provided for This Section Discharge Summaries No Data Provided for This Section History and Physicals No Data Provided for This Section Vital Signs No Data Provided for This Section Encounters Location Location Details Encounter Type Encounter Number Reason For Visit Attending Provider ADM Date DC Date Status Source [facility] Outpatient [id number] Jake Gupta 04/16/2018 04/17/2018 [facility] Procedures No Data Provided for This Section Assessment and Plan No Data Provided for This Section Plan of Care No Data Provided for This Section Social History Social History Date Source No data available for this section 04/17/2018 [facility] Family History No Data Provided for This Section Advance Directives No Data Provided for This Section Functional Status No Data Provided for This Section
--- OUTSIDE RECORDS SUMMARY | 2019-04-25 19:29 | XMS REPORT ---
Author Author [facility] Address Unknown Phone Unavailable Care Team Providers Care [place] Examiner Name Role Phone Estevan VILLAVICENCIO Unavailable Unavailable Woody SAAB Unavailable Unavailable Ivelisse RESTREPO Unavailable Unavailable Problems This patient has no known problems. Allergies, Adverse Reactions, Alerts This patient has no known allergies or adverse reactions. Medications This patient has no known medications. Results Test Description Test Time Test Comments Text Results Atomic Results Result Comments KNEE RIGHT THREE VIEWS 2019-01-05 22:21:[address] [address] Patient Name: CARLOS ARZOLA MR #: [id number] : 1970 Age/Sex: 48/F Req #: [id number] Adm Physician: Ordered by: ZEESHAN VILLAVICENCIO MD Report #: [id number] Location: ER Room/Bed: Procedure: [id number] DX/KNEE RIGHT THREE VIEWS Exam Date: 01/05/19 Exam Time: 2138 REPORT STATUS: Signed Exam: Right Knee Series. History: Multiple small Comparison: None. Findings: 3 views of the right knee. There is normal bone mineralization. Negative for acute, displaced fracture or dislocation. Mild degenerative changes with small patellar osteophytes and mild joint space narrowing in the medial femorotibial compartment. No abnormal soft tissue calcification or mass. No effusions or soft tissue swelling. Impression: 1. No acute abnormalities. Signed by: Dr. Dinora Lee M.D. on 01/05/2019 10:22 PM Dictated By: DINORA LEE MD 21 Transcribed By: ANAHI on 01/05/192221 COPY TO: ZEESHAN VILLAVICENCIO MD ANKLE 3 + VIEWS RIGHT 2019-01-05 22:20:00 [place] [address] Patient Name: CARLOS ARZOLA MR #: [id number] : 1970 Age/Sex: 48/F Req #: [id number] Adm Physician: Ordered by: ZEESHAN VILLAVICENCIO MD Report #: [id number] Location: ER Room/Bed: Procedure: [id number] DX/ANKLE 3 + VIEWS RIGHT Exam Date: 01/05/19 Exam Time: 2138 REPORT STATUS: Signed Exam: Right Ankle Series. History: Status post fall and ankle pain Comparison: None. DISCUSSION: 3 views of the right ankle. There is normal bone mineralization. No evidence of acute, displaced fracture or dislocation. Ankle mortise is preserved.No osteochondral lesion. No abnormal soft tissue calcification or mass. Vascular calcifications. Small inferior calcaneal enthesophyte. Moderate soft tissue swelling surrounding the ankle. IMPRESSION: 1. Moderate soft tissue swelling surrounding the ankle, without underlying acute bony abnormality. The staff physician below has personally reviewed this exam on the date of dictation. Signed by: Dr. Dinora Lee M.D. on 01/05/2019 10:21 PM Dictated By: DINORA LEE MD 20 Transcribed By: ANAHI on 01/05/192220 COPY TO: ZEESHAN VILLAVICENCIO MD CT ABDOMEN/PELVIS WO 2018-11-27 00:50:00 [place] [address] Patient Name: CARLOS ARZOLA MR #: [id number] : 1970 Age/Sex: 48/F Req #: [id number] Adm Physician: Ordered by: KASH RESTREPO MD Report #: [id number] Location: ER Room/Bed: Procedure: [id number] CT/CT ABDOMEN/PELVIS WO Exam Date: Exam Time: REPORT STATUS: Signed EXAM: CT Abdomen and Pelvis WITHOUT contrast INDICATION: Left upper quadrant pain. Rule out pancreatitis. TORB DR RESTREPO 11/26/18 @ 9402 COMPARISON: None. TECHNIQUE: Abdomen and pelvis were scanned utilizing a multidetector helical scanner from the lung base to the pubic symphysis without administration of IV contrast. Absence of intravenous contrast decreases sensitivity for detection of focal lesions and vascular pathology. Coronal and sagittal reformations were obtained. Routine protocol was performed. IV CONTRAST: None ORAL CONTRAST: Gastrografin COMPLICATIONS: None RADIATION DOSE: Total DLP: 1189.7 mGy*cm Estimated effective dose: (DLP x 0.015 x size factor) mSv CTDIvol has been reviewed. It is below the limits set by the Radiation Protocol Committee (RPC). FINDINGS: LINES and TUBES: None. LOWER THORAX: Small right pleural effusion. HEPATOBILIARY: No focal hepatic lesions. No biliary ductal dilation. GALLBLADDER: Cholecystectomy. S PLEEN: No splenomegaly. PANCREAS: No focal masses or ductal dilatation. ADRENALS: No adrenal nodules KIDNEYS/URETERS: No hydronephrosis. No cystic or solid mass lesions. No stones. GI TRACT: No abnormal distention, wall thickening, or evidence of bowel obstruction. There are diverticula within the colon without evidence of diverticulitis. Appendix is normal. PELVIC ORGANS/BLADDER: Unremarkable. LYMPH NODES: No lymphadenopathy. VESSELS: Unremarkable. PERITONEUM / RETROPERITONEUM: No free air or fluid. BONES: No acute or suspicious osseous lesions. Hemangioma in the T11 vertebral body. Moderate disc space narrowing L5-S1. SOFT TISSUES: Skin thickening and subcutaneous stranding along the anterior inferior pannus. IMPRESSION: No CT evidence of pancreatitis, although CT may be negative in mild pancreatitis. Recommend correlation with lipase. No acute intra-abdominal abnormalities. Small right pleural effusion. Signed by: DR. Srikanth Kam MD on 11/27/2018 1:02 AM Dictated By: SRIKANTH KAM MD 1 Transcribed By: ANAHI on 11/27/18101 COPY TO: KASH RESTREPO MD LOWER LEG LEFT 2018-06-19 21:45:00 [place] [address] Patient Name: CARLOS ARZOLA MR #: [id number] : 1970 Age/Sex: 48/F Req #: [id number] Adm Physician: Ordered by: RADHA REYNOLDS ENVIRONMENTAL PROTECTION SPECIALIST Report #: [id number] Location: ER Room/Bed: Procedure: [id number] DX/LOWER LEG LEFT Exam Date: 06/19/18 Exam Time: 2099 REPORT STATUS: Signed LOWER LEG LEFT Comparison: None Clinical history: S Puncture wound LLE, rule out FB S [id number] S [address] Findings: Mild lower extremity soft tissue swelling. No acute fracture or dislocation. No bony erosion. Benign smooth periosteal thickening of the fibula, which can be seen with chronic venous stasis. Impression: No radiographic evidence of osteomyelitis. No radiopaque foreign body. Signed by: Dr Haydee Agustin MD on 06/19/2018 9:47 PM Dictated By: HAYDEE AGUSTIN MD 46 Transcribed By: ANAHI on 06/19/182146 COPY TO: RADHA REYNOLDS NP FOOT RIGHT COMPLETE [place] [address] Patient Name: CARLOS ARZOLA MR #: [id number] : 1970 Age/Sex: 47/F Req #: [id number] Adm Physician: Ordered by: JEREMIAH DARNELL NP Report #: [id number] Location: ER Room/Bed: Procedure: [id number] DX/FOOT RIGHT COMPLETE Exam Date: 12/16/17 Exam Time: 1820 REPORT STATUS: Signed EXAM: FOOT RIGHT COMPLETE, AP, lateral and oblique INDICATION: Blister on lower leg COMPARISON: None FINDINGS: BONES: No acute fractures. Small plantar calcaneal spur. JOINTS: No malalignment. SOFT TISSUES: Soft tissue swelling/edema of the foot. IMPRESSION: No fractures or erosions of the right foot. Signed by: Dr. Jose aYp M.D. on 12/16/2017 7:19 PM Dictated By: JOSE YAP MD 18 Transcribed By: ANAHI on 12/16/171918 COPY TO: JEREMIAH DARNELL NP LOWER LEG RIGHT [place] [address] Patient Name: CARLOS ARZOLA #: [id number] : 1970 Age/Sex: 47/F Req #: [id number] [facility] Physician: Ordered by: JEREMIAH DARNELL NP Report #: [id number] Location: ER Room/Bed: Procedure: [id number] DX/LOWER LEG RIGHT Exam Date: 12/16/17 Exam Time: 1820 REPORT STATUS: Signed EXAM: LOWER LEG RIGHT, AP and lateral INDICATION: Blister on lower leg COMPARISON: None FINDINGS: BONES: No acute fractures. JOINTS: No malalignment. SOFT TISSUES: Soft tissue swelling/edema of the right leg. IMPRESSION: No right tibia or fibula erosion or fracture. Signed by: Dr. Jose Yap M.D. on 12/16/2017 7:20 PM Dictated By: JOSE YAP MD 19 Transcribed By: ANAHI on 12/16/171919 COPY TO: JEREMIAH DARNELL NP
[2019-04-25] MEDS ORDERED: KETOROLAC TROMETHAMINE 60 MG/2 ML VIAL IM ONE (19:30)
--- NOTE | 2019-04-25 20:35 | Diagnostic Imaging Report ---
KNEE RIGHT THREE VIEWS, KNEE LEFT THREE VIEWS - 3 views HISTORY: Fell down. COMPARISON: Right knee 3 views dated 01/05/19. FINDINGS: Bones: No acute displaced fracture. Osseous alignment is within normal limits. Joints: Moderate degenerative osteoarthrosis of the right knee predominantly involving the medial compartment, not significantly changed.. Soft tissues: Vascular calcifications. IMPRESSION: No acute radiographic abnormality. Moderate degenerative osteoarthrosis of the right knee predominantly involving the medial compartment, not significantly changed.. Signed by: Dr. Kacy Bruce M.D. on 04/25/2019 8:31 PM
[2019-04-25 21:12] VITALS: BP 168/73
== END 2019-04-25 21:18 | disposition home or self-care (01) ==
LOC: ER 19:24
DX: M25.562 Pain in left knee (principal); M25.561 Pain in right knee; S80.811A Abrasion, right lower leg, initial encounter; W01.0XXA Fall on same level from slipping, tripping and stumbling without subsequent striking against object, initial encounter; Y92.488 Other paved roadways as the place of occurrence of the external cause; I10 Essential (primary) hypertension; E13.40 Other specified diabetes mellitus with diabetic neuropathy, unspecified; E78.5 Hyperlipidemia, unspecified; E66.01 Morbid (severe) obesity due to excess calories
CPT/HCPCS: 73562 ×2; 99283; J1885

== ENCOUNTER 2019-12-25 10:28 | Emergency (ER) | payer BC ==
[~2019-12-25] VITALS: Ht 167.6 cm; Wt 115.7 kg
[2019-12-25] MEDS ORDERED: ALBUTEROL/IPRATROPIUM 3 ML NEB NEB ONE (11:00)
[2019-12-25] MEDS ORDERED: DEXAMETHASONE SOD PHOS 10 MG/1 ML VIAL IV ONE (11:00)
--- NOTE | 2019-12-25 11:05 | NUR ---
REC'D PT IN RM 10 FROM [facility] FOR FLU-LIKE SYMPTOMS. PLACED ON AT 2L-SAT'S 100
[2019-12-25] MEDS ORDERED: DEXAMETHASONE SOD PHOS INJ 4 MG/ML VIAL IM ONE (11:25)
[2019-12-25] MEDS ORDERED: DEXAMETHASONE SOD PHOS 10 MG/1 ML VIAL ONE (11:25)
--- NOTE | 2019-12-25 11:25 | NUR ---
PT VERBALIZED, "I'M OKAY WITH THAT MED. I'VE HAD IT BEFORE." DUE TO THE PT'S NUMEROUS ALLERGIES.
[2019-12-25 11:28] LABS: INFLUENZAE A&B ANTIGEN (RAPID) NEGATIVE (NEGATIVE); STREPTOCOCCUS GRP A ANTIGEN NEGATIVE (NEGATIVE)
--- NOTE | 2019-12-25 12:12 | Diagnostic Imaging Report ---
EXAMINATION: CHEST 2 VIEWS INDICATION: Cough, fever COMPARISON: None FINDINGS: LINES/TUBES:None LUNGS:The lungs are moderately inflated. Increased bilateral interstitial opacities. PLEURA:No pleural effusion or pneumothorax. MEDIASTINUM:The cardiomediastinal silhouette appears normal in size and shape. Atherosclerotic calcifications of the thoracic aorta. BONES/SOFT TISSUES:No acute osseous injury. ABDOMEN:No free air under the diaphragm. IMPRESSION: Bilateral increased interstitial opacities may represent viral pneumonia in the setting of cough and fever. No lobar consolidation. Signed by: Shankar Brown MD on 12/25/2019 12:09 PM
[2019-12-25 13:36] VITALS: BP 159/84
== END 2019-12-25 13:50 | disposition home or self-care (01) ==
LOC: ER 10:28
DX: J12.9 Viral pneumonia, unspecified (principal); I10 Essential (primary) hypertension; E11.9 Type 2 diabetes mellitus without complications; J44.9 Chronic obstructive pulmonary disease, unspecified; F32.9 Major depressive disorder, single episode, unspecified; E66.9 Obesity, unspecified; Z68.41 Body mass index [BMI] 40.0-44.9, adult; Z79.82 Long term (current) use of aspirin; Z79.4 Long term (current) use of insulin; Z88.0 Allergy status to penicillin; Z88.2 Allergy status to sulfonamides
CPT/HCPCS: 71046; 83518; 87070; 87400; 94640; 99284; J1100

== ENCOUNTER 2020-04-15 17:25 | Emergency (ER) | payer SELFPAY ==
[~2020-04-15] VITALS: Ht 152.4 cm; Wt 115.7 kg
--- NOTE | 2020-04-15 21:50 | Emergency Department Note ---
History of Present Illnes History of Present Illness Chief Complaint: Skin Rash or Abscess History of Present Illness This is a 49 year old female presents to the ED for evaluation of LLE erythema of 3 weeks duration. Patient started on abx 3 weeks prior and had completed a 10 day course. No abx since. States that she was sent by Dr Yasmin Gonzalez for evaluation. Denies f/c/n/v . Historian: Patient Arrival Mode: Car Onset (how long ago): week(s) Radiation: Reports extremity Severity: mild, moderate Onset quality: gradual Duration (how long): week(s) (3) Timing of current episode: constant Progression: unchanged Chronicity: new Context: Reports recent illness Relieving factors: none Exacerbating factors: none Associated symptoms: Reports denies other symptoms; Denies fever/chills, Denies nausea/vomiting Past Medical/Family History Physician Review I have reviewed the patient's past medical and family history. Any updates have been documented here. Past Medical History Recent Fever: No Clinical Suspicion of Infectio: No New/Unexplained Change in Ment: No Past Medical History: Hypertension, Diabetes, COPD, Asthma, Kidney Stones, Dep ression, Hyperlipedemia, Osteoarthritis Other Medical History: HYPERLIPIDEMIA, NEUROPATHY VENOUS STASIS MORBID OBESITY CELLULITIS GENITAL HERPES Past Surgical History: Cholecysctectomy, Tubal Ligation Other Surgery: Abcesses (boils) RIGHT ABDOMEN HEMORROIDECTOMY Social History Physically hurt or threatened: No Other Last Tetanus: UTD Review of Systems Review of Systems Constitutional: Reports no symptoms EENTM: Reports no symptoms Cardiovascular: Reports no symptoms Respiratory: Reports no symptoms Gastrointestinal: Reports no symptoms Genitourinary: Reports no symptoms Musculoskeletal: Reports no symptoms Integumentary: Reports no symptoms, Reports change in color Neurological: Reports no symptoms Psychological: Reports no symptoms Endocrine: Reports no symptoms Hematological/Lymphatic: Reports no symptoms Physical Exam Related Data Allergies: Coded Allergies: Penicillins (Verified Allergy, Unknown, 11/26/18) HIVES Sulfa (Sulfonamide Antibiotics) (Verified Allergy, Unknown, 11/26/18) SOB codeine (Verified Allergy, Unknown, 11/26/18) HIVES dextromethorphan HBr (Verified Allergy, Unknown, 11/26/18) diphenhydramine (Verified Allergy, Unknown, 11/26/18) HIVES doxylamine (Verified Allergy, Unknown, 11/26/18) metformin (Verified Allergy, Unknown, 11/26/18) prednisolone (Verified Allergy, Unknown, 11/26/18) HIVES prednisone (Verified Allergy, Unknown, 11/26/18) pseudoephedrine HCl (Verified Allergy, Unknown, 11/26/18) sulfamethoxazole (Verified Allergy, Unknown, 11/26/18) trimethoprim (Verified Allergy, Unknown, 11/26/18) Triage Vital Signs Vital Signs Date Time Temp Pulse Resp B/P (MAP) Pulse Ox O2 Delivery O2 Flow Rate FiO2 04/15/20 17:55 97.1 69 18 179/87 95 Room Air Physical Exam CONSTITUTIONAL Constitutional: Present morbidly obese HENT HENT: Present normocephalic, Present atraumatic, Present oropharynx clear/moist, Present nose normal HENT L/R: Present left ext ear normal, Present right ext ear normal EYES Eyes: Reports PERRL, Reports conjunctivae normal NECK Neck: Present ROM normal PULMONARY Pulmonary: Present effort normal, Present breath sounds normal CARDIOVASCULAR Cardiovascular: Present regular rhythm, Present heart sounds normal, Present capillary refill normal, Present normal rate GASTROINTESTINAL Abdominal: Present soft, Present nontender, Present bowel sounds normal GENITOURINARY Genitourinary: Present exam deferred SKIN Skin: Present erythema (Left mid shaft well circumscribed. No ascending lymphantitis noted.) MUSCULOSKELETAL Musculoskeletal: Present ROM normal NEUROLOGICAL Neurological: Present alert, Present oriented x 3, Present no gross motor or sensory deficits PSYCHOLOGICAL Psychological: Present mood/affect normal, Present judgement normal Assessment & Plan Medical Decision Making MDM Diff Dx : cellultis, sepsis, contusion, injury Reassessment Reassessment Patient verbally belligerent and states that oral abx will not work for her. Patient states that Dr Yasmin Gonzalez sent her in for admission to the hospital. Patient non-toxic appearing and VSS. Rx abx offered but patient adamantly refused and states "abx will not work for me" . I offered to give patient referral for wound care clinic. Assessment & Plan Final Impression: (1) Cellulitis of extremity Depart Disposition: ADMITTED Last Vital Signs Date Time Temp Pulse Resp B/P (MAP) Pulse Ox O2 Delivery O2 Flow Rate FiO2 04/15/20 17:55 97.1 69 18 179/87 95 Room Air Home Meds Reported Medications Clindamycin Hcl (CLINDAMYCIN HCL) 150 Mg Capsule, 300 MG PO TID 06/22/18 Montelukast Sodium (MONTELUKAST SODIUM) 10 Mg Tablet, 10 MG PO HS, #30 TAB 12/16/17 Clindamycin Hcl (CLINDAMYCIN HCL) 150 Mg Capsule, 300 MG PO TID, #30 08/06/17 Insulin Regular, Human (NOVOLIN R) 100 Unit/1 Ml Vial, 40 UNITS SC TID 08/02/17 Mupirocin (MUPIROCIN) 22 Gm Oint...g., 1 DOSE TOP DAILY, EACH 08/01/17 Spironolactone (SPIRONOLACTONE) 25 Mg Tablet, 25 MG PO DAILY, #60 TAB 08/01/17 Terbinafine Hcl (TERBINAFINE HCL) 250 Mg Tablet, 250 MG PO DAILY, #30 TAB 08/01/17 Tramadol Hcl* (ULTRAM 50MG*) 50 Mg Tab, 50 MG PO Q8HR PRN for PAIN, TAB 08/01/17 Albuterol Sulfate (PROVENTIL HFA) 6.7 Gm Hfa.aer.ad, 2 DOSE INH Q6HR PRN for SHORTNESS OF BREATH 08/01/17 Insulin Aspart (NOVOLOG) 100 Unit/1 Ml Cartridge, 40 UNITS SC TID 08/01/17 Metoprolol Tartrate (METOPROLOL TARTRATE) 25 Mg Tablet, 25 MG PO BID, TAB 08/01/17 Lisinopril (LISINOPRIL) 2.5 Mg Tablet, 5 MG PO DAILY, #30 TAB 08/01/17 Insulin Detemir (LEVEMIR) 100 Unit/1 Ml Vial, 90 UNITS SC BID 08/01/17 Ketoconazole (KETOCONAZOLE) 15 Gm Cream..g., 1 DOSE TOP DAILY 08/01/17 Gabapentin (GABAPENTIN) 300 Mg Capsule, 600 MG PO TID, #60 CAP 08/01/17 Furosemide (FUROSEMIDE) 40 Mg Tablet, 40 MG PO BID, #30 TAB 08/01/17 Bupropion Hcl (BUPROPION XL) 150 Mg Tab.er.24h, 300 MG PO DAILY 08/01/17 Aspirin (ASPIR 81) 81 Mg Tablet.dr, 81 MG PO DAILY 08/01/17 Acyclovir (ACYCLOVIR) 200 Mg Capsule, 400 MG PO DAILY, #30 CAP 08/01/17 JEREMIAH YOUNG 1, 2020 21:50
== END 2020-04-15 21:52 | disposition home or self-care (01) ==
LOC: ER 18:46
DX: L03.116 Cellulitis of left lower limb (principal); I10 Essential (primary) hypertension; E11.40 Type 2 diabetes mellitus with diabetic neuropathy, unspecified; E78.5 Hyperlipidemia, unspecified
CPT/HCPCS: 99282

== ENCOUNTER 2021-05-03 05:22 | Inpatient (IN) | payer BC, MEDICARE ==
[2021-04-29 10:12] LABS: BASOPHILS % 0.3 % (0.0-1.0); EOSINOPHILS # (AUTO) 0.1 (0.0-0.4); EOSINOPHILS % 0.5 % (0.0-6.0); HEMATOCRIT 43.3 % (34.2-44.1); HEMOGLOBIN 13.5 g/dL (12.0-16.0); LYMPHOCYTES # (AUTO) 1.1 (1.0-3.2); LYMPHOCYTES % 11.9 % (18.0-39.1); MEAN CORPUSCULAR HEMOGLOBIN 29.5 pg (28-32); MEAN CORPUSCULAR HGB CONC 31.2 g/dL (31-35); MEAN CORPUSCULAR VOLUME 94.5 fL (81-99); MONOCYTES # (AUTO) 0.2 (0.2-0.8); MONOCYTES % 2.2 % (4.4-11.3); NEUTROPHILS # (AUTO) 7.9 (2.1-6.9); NEUTROPHILS % 84.7 % (38.7-80.0); PLATELET COUNT 245 x10e3/uL (140-360); RED BLOOD COUNT 4.58 x10e6/uL (3.6-5.1); RED CELL DISTRIBUTION WIDTH 13.7 % (11.7-14.4)
[2021-04-29 10:27] LABS: ANION GAP 14.1 mmol/L (8-16); CALCIUM 9.4 mg/dL (8.4-10.2); CREATININE, SERUM 1.15 mg/dL (0.57-1.11); POTASSIUM 4.1 mmol/L (3.5-5.1)
[~2021-05-03] VITALS: Ht 152.4 cm; Wt 114.8 kg
[~2021-05-03 05:22] MED LIST changes: +HUMALOG100 UNIT/1; +PRAMIPEXOLE D0.25 MG PO; +WELLBUTRIN SR100 MG PO; +ZOLOFT100 MG PO
[2021-05-03] MEDS ORDERED: DEXTROSE 5% 250ML 250 ML IV ONE (06:48)
[2021-05-03] MEDS ORDERED: LEVOFLOXACIN 500MG/D5W 100ML 100 ML IV ONE (06:55)
[2021-05-03] MEDS ORDERED: BUPIVACAINE HCL 0.5% INJ 30 ML VIAL INJ ONE (06:59)
[2021-05-03] MEDS ORDERED: SUGAMMADEX SODIUM 200 MG/2 ML VIAL IV ONE (09:14)
[2021-05-03] MEDS ORDERED: ONDANSETRON HCL INJ 2MG/ML 2ML 2 MG/ML VIAL ONE ×2 (11:00→13:01)
[2021-05-03 11:38] VITALS: BP 117/44
[2021-05-03] MEDS ORDERED: TRAMADOL HCL 50 MG TAB PO PRN (12:00)
[2021-05-03] MEDS ORDERED: HYDROCODONE/APAP 7.5MG-325MG 1 EA TAB PO PRN (12:00)
[2021-05-03] MEDS ORDERED: FENTANYL CITRATE/PF 100MCG/2 ML INJ ONE (12:14)
[2021-05-03] MEDS ORDERED: KETAMINE HCL INJ 50 MG/ML 10 ML VIAL ONE (12:14)
[2021-05-03] MEDS ORDERED: MIDAZOLAM HCL 2 MG/2 ML VIAL ONE (12:14)
[2021-05-03] MEDS: LACTATED RINGER'S 1,000 ML INJ SCH ×2 (12:21→22:00)
[2021-05-03] MEDS ORDERED: SCOPOLAMINE 1.5 MG PATCH TOP ONE (13:00)
[2021-05-03] MEDS ORDERED: ROCURONIUM BROMIDE 10 MG/ML 5ML VIAL IV ONE (13:01)
[2021-05-03] MEDS ORDERED: PHENYLEPHRINE HCL 1% 10 MG/ML VIAL ONE (13:01)
[2021-05-03] MEDS ORDERED: SEVOFLURANE INHAL SOLN 250 ML PEN BTL ONE (13:01)
[2021-05-03] MEDS ORDERED: PROPOFOL IV EMULSION 10 MG/ML 20 ML VIAL ONE (13:01)
[2021-05-03] MEDS ORDERED: DEXAMETHASONE SOD PHOS INJ 4 MG/ML VIAL ONE (13:01)
[2021-05-03] MEDS ORDERED: POVIDONE IODINE 0.05% 0.05 % ML PO ONE (13:01)
[2021-05-03] MEDS ORDERED: LIDOCAINE HCL 2% LOCAL INJ 5 ML SDV VIAL INJ ONE (13:01)
[2021-05-03] MEDS ORDERED: LIDOCAINE HCL 2% JELLY 5 ML TUBE ONE (13:01)
[2021-05-03] MEDS: MORPHINE SULFATE INJ 2 MG/ML SYR IV PRN (14:28)
[2021-05-03] MEDS: ONDANSETRON HCL INJ 2MG/ML 2ML 2 MG/ML VIAL IV PRN (14:28)
[2021-05-03 20:00] VITALS: BP 142/65
[2021-05-03 22:00] VITALS: BP 142/65
[2021-05-03] MEDS: ENOXAPARIN SOD INJ 40 MG/0.4 ML SYR SC SCH (22:00)
[2021-05-04] VITALS (7 sets, daily range): BP systolic 102–156; BP diastolic 41–84
[2021-05-04] MEDS: ONDANSETRON HCL INJ 2MG/ML 2ML 2 MG/ML VIAL IV PRN ×2 (04:24→09:35)
[2021-05-04] MEDS: MORPHINE SULFATE INJ 2 MG/ML SYR IV PRN (04:24)
[2021-05-04 06:07] LABS: BASOPHILS % 0.3 % (0.0-1.0); EOSINOPHILS # (AUTO) 0.1 (0.0-0.4); EOSINOPHILS % 0.5 % (0.0-6.0); HEMATOCRIT 34.6 % (34.2-44.1); HEMOGLOBIN 10.7 g/dL (12.0-16.0); LYMPHOCYTES # (AUTO) 1.6 (1.0-3.2); LYMPHOCYTES % 16.6 % (18.0-39.1); MEAN CORPUSCULAR HEMOGLOBIN 29.7 pg (28-32); MEAN CORPUSCULAR HGB CONC 30.9 g/dL (31-35); MEAN CORPUSCULAR VOLUME 96.1 fL (81-99); MONOCYTES # (AUTO) 0.6 (0.2-0.8); MONOCYTES % 5.6 % (4.4-11.3); NEUTROPHILS # (AUTO) 7.6 (2.1-6.9); NEUTROPHILS % 76.6 % (38.7-80.0); PLATELET COUNT 207 x10e3/uL (140-360); RED CELL DISTRIBUTION WIDTH 13.8 % (11.7-14.4)
[2021-05-04] MEDS: LACTATED RINGER'S 1,000 ML INJ SCH ×5 (06:10→20:00)
[2021-05-04 06:18] LABS: ANION GAP 9.2 mmol/L (8-16); CALCIUM 8.5 mg/dL (8.4-10.2); MAGNESIUM 2.1 MG/DL (1.3-2.1); PHOSPHORUS 3.3 MG/DL (2.3-4.7); POTASSIUM 4.2 mmol/L (3.5-5.1)
[2021-05-04] MEDS ORDERED: ACETAMINOPHEN 325 MG TAB PO PRN (09:15)
[2021-05-04] MEDS ORDERED: DEXTROSE 50% SYRINGE 50 ML IV PRN (09:15)
[2021-05-04] MEDS ORDERED: DOCUSATE SODIUM 100 MG CAP PO PRN (09:15)
[2021-05-04 09:21] LABS: CHOL/HDL RATIO 3.3 (3.0-3.6)
[2021-05-04] MEDS: ENOXAPARIN SOD INJ 40 MG/0.4 ML SYR SC SCH ×2 (09:35→17:18)
[2021-05-04] MEDS: INSULIN REGULAR, HUMAN 100 UNIT/1 ML SQ SCH ×3 (12:18→21:20)
[2021-05-04] MEDS: PROMETHAZINE 12.5MG/ NACL 0.9% 12.5 MG/50 ML BAG IV PRN (12:40)
[2021-05-04] MEDS: GABAPENTIN 300 MG CAP PO SCH ×2 (17:17→21:20)
[2021-05-04] MEDS: METOPROLOL TARTRATE 25 MG TAB PO SCH (17:18)
[2021-05-04] MEDS: SERTRALINE HCL 100 MG TAB PO SCH (21:20)
[2021-05-04] MEDS: ATORVASTATIN 40 MG TAB PO SCH (21:20)
[2021-05-04] MEDS: MONTELUKAST SODIUM 10 MG TAB PO SCH (21:20)
[2021-05-05] VITALS (7 sets, daily range): BP systolic 92–133; BP diastolic 40–64
[2021-05-05] MEDS: INSULIN REGULAR, HUMAN 100 UNIT/1 ML SQ SCH ×4 (07:30→21:00)
[2021-05-05] MEDS: LACTATED RINGER'S 1,000 ML INJ SCH ×3 (07:43→21:45)
[2021-05-05] MEDS: ASPIRIN 81 MG CHEW TAB PO SCH (09:32)
[2021-05-05] MEDS: PRAMIPEXOLE DIHYDROCHLORIDE 0.25 MG TAB PO SCH (09:32)
[2021-05-05] MEDS: METOPROLOL TARTRATE 25 MG TAB PO SCH ×2 (09:32→16:47)
[2021-05-05] MEDS: GABAPENTIN 300 MG CAP PO SCH ×3 (09:33→21:45)
[2021-05-05] MEDS: ENOXAPARIN SOD INJ 40 MG/0.4 ML SYR SC SCH ×2 (09:33→16:47)
[2021-05-05] MEDS: PROMETHAZINE 12.5MG/ NACL 0.9% 12.5 MG/50 ML BAG IV PRN (12:54)
[2021-05-05] MEDS: MONTELUKAST SODIUM 10 MG TAB PO SCH (21:45)
[2021-05-05] MEDS: ATORVASTATIN 40 MG TAB PO SCH (21:45)
[2021-05-05] MEDS: SERTRALINE HCL 100 MG TAB PO SCH (21:45)
[2021-05-06 04:00] VITALS: BP 139/58
[2021-05-06 07:15] VITALS: BP 148/67
[2021-05-06] MEDS: INSULIN REGULAR, HUMAN 100 UNIT/1 ML SQ SCH ×2 (07:30→12:19)
[2021-05-06] MEDS: LACTATED RINGER'S 1,000 ML INJ SCH (07:50)
[2021-05-06 08:41] LABS: BASOPHILS # (AUTO) 0.1 (0.0-0.1); BASOPHILS % 0.5 % (0.0-1.0); EOSINOPHILS # (AUTO) 0.4 (0.0-0.4); EOSINOPHILS % 3.5 % (0.0-6.0); HEMATOCRIT 34.5 % (34.2-44.1); HEMOGLOBIN 10.6 g/dL (12.0-16.0); LYMPHOCYTES # (AUTO) 1.5 (1.0-3.2); LYMPHOCYTES % 14.1 % (18.0-39.1); MEAN CORPUSCULAR HEMOGLOBIN 29.9 pg (28-32); MEAN CORPUSCULAR HGB CONC 30.7 g/dL (31-35); MEAN CORPUSCULAR VOLUME 97.5 fL (81-99); MONOCYTES # (AUTO) 0.6 (0.2-0.8); MONOCYTES % 5.4 % (4.4-11.3); NEUTROPHILS # (AUTO) 7.9 (2.1-6.9); NEUTROPHILS % 75.9 % (38.7-80.0); PLATELET COUNT 212 x10e3/uL (140-360); RED BLOOD COUNT 3.54 x10e6/uL (3.6-5.1); RED CELL DISTRIBUTION WIDTH 13.6 % (11.7-14.4)
[2021-05-06 09:07] LABS: ANION GAP 11.4 mmol/L (8-16); CALCIUM 8.4 mg/dL (8.4-10.2); CREATININE, SERUM 0.8 mg/dL (0.57-1.11); POTASSIUM 4.4 mmol/L (3.5-5.1)
[2021-05-06] MEDS: ASPIRIN 81 MG CHEW TAB PO SCH (09:22)
[2021-05-06] MEDS: METOPROLOL TARTRATE 25 MG TAB PO SCH (09:23)
[2021-05-06] MEDS: GABAPENTIN 300 MG CAP PO SCH (09:24)
[2021-05-06] MEDS: ENOXAPARIN SOD INJ 40 MG/0.4 ML SYR SC SCH (09:24)
[2021-05-06] MEDS: PRAMIPEXOLE DIHYDROCHLORIDE 0.25 MG TAB PO SCH (09:24)
[2021-05-06 09:32] VITALS: BP 148/67
[2021-05-06 11:42] VITALS: BP 156/67
[2021-05-06 16:31] VITALS: BP 171/70
== END 2021-05-06 17:43 | disposition home or self-care (01) | DRG 620 ==
LOC: OR 05:22 → PACU V 10:49 → MED/SURG 11:41
PROVIDERS: ADMIT Internal Medicine; ATTEND Internal Medicine
PROC: 0D164ZA Bypass Stomach to Jejunum, Percutaneous Endoscopic Approach (ICD-10-PCS; principal; 2021-05-03 07:30)
DX: E66.01 Morbid (severe) obesity due to excess calories (principal); N17.9 Acute kidney failure, unspecified; Z68.42 Body mass index [BMI] 45.0-49.9, adult; E11.9 Type 2 diabetes mellitus without complications; G47.33 Obstructive sleep apnea (adult) (pediatric); J44.9 Chronic obstructive pulmonary disease, unspecified; J45.909 Unspecified asthma, uncomplicated; I10 Essential (primary) hypertension; Z79.4 Long term (current) use of insulin; I50.9 Heart failure, unspecified; I11.0 Hypertensive heart disease with heart failure
CPT/HCPCS: 36415; 71046; 80048; 80061; 82948; 83036; 83735; 84100; 85025; 93005; J1100; J1650; J1817; J1956; J2001; J2250; J2270; J2370; J2405; J2550; J3010; J7070; J7121